=== PATIENT | male | born 1970 | race Two or more races ===

== ENCOUNTER 2020-05-06 06:16 | Day surgery (SDC) | payer OTHER ==
[~2020-05-06 06:16] MED LIST: ACID REDUCER20 M1 PO; PRILOSEC40 MG
[2020-05-06] MEDS ORDERED: PERCOCET 5-3251 EACH PO (11:01)
[2020-05-06] MEDS ORDERED: NEURONTIN600 M1 PO (11:02)
[2020-05-06] MEDS ORDERED: COLACE100 MG PO (11:02)
== END 2020-05-06 12:35 | disposition home or self-care (01) ==
LOC: CIR.AMB 06:16
PROVIDERS: ATTEND Surgery
DX: K40.91 Unilateral inguinal hernia, without obstruction or gangrene, recurrent (principal); Z20.828 Contact with and (suspected) exposure to other viral communicable diseases